=== PATIENT | male | born 1995 | race Caucasian/White ===

== ENCOUNTER 2017-10-18 19:53 | Emergency (ER) | payer OTHER ==
[~2017-10-18] VITALS: Ht 175.3 cm; Wt 78.0 kg
[2017-10-18 20:23] VITALS: BP 150/67; PULSE 98; RESP 16; TEMP 98.5; O2SAT 96
--- NOTE | 2017-10-18 21:31 | RADRPT ---
EXAM DATE/TIME: 10/18/2017 21:22 [place] COMPARISON: No previous studies available for comparison. INDICATIONS : Cough. MEDICAL HISTORY : None. SURGICAL HISTORY : None. ENCOUNTER: Initial ACUITY: 2 weeks PAIN SCORE: 0/10 LOCATION: Bilateral chest FINDINGS: Portable AP view of the chest demonstrates a normal-sized cardiac silhouette. No effusion, consolidat ion, or pneumothorax is visualized. The bones and soft tissues demonstrate no acute abnormality. CONCLUSION: No acute cardiopulmonary abnormality is identified. Frantz Leiva MD on October 18, 2017 at 21:28 Board Certified Radiologist. This report was verified electronically.
[2017-10-18] MEDS ORDERED: IPRA0.06 EACH NARE (22:04)
[2017-10-18] MEDS ORDERED: IBUP1TAB7 PO (22:04)
[2017-10-18] MEDS ORDERED: AMOX875T PO (22:04)
[2017-10-18] MEDS ORDERED: BENZ100 PO (22:05)
--- NOTE | 2017-10-18 22:05 | PD ---
HPI Chief Complaint: Cold / Flu Symptoms Time Seen by Provider: 21:07 Travel History International Travel<30 days: No Contact w/Intl Traveler<30days: No Traveled to known affect area: No History of Present Illness HPI Patient is a 22-year-old male presenting to emergency department for evaluation of cold and flulike symptoms. Patient states his symptoms started 6 days ago, he reports subjective fever and chills. He states that he has been taking Mucinex and ibuprofen which help alleviate his symptoms. 3 days ago his father who is a physician called in a prescription for azithromycin. He has 2 doses of this left. He denies any abdominal pain, nausea, vomiting, chest pain, shortness of breath. He does report nasal congestion, postnasal drip, nonproductive cough, watery eyes. Symptom onset was gradual, symptoms are moderate in nature. Patient states he wakes up in the middle of the night coughing. He denies any significant past medical history. He has no complaints of pain at this time. [facility] Past Medical History Medical History: Denies Significant Hx Social History Alcohol Use: No Tobacco Use: No Substance Use: No Allergies-Medications (Allergen,Severity, Reaction): Coded Allergies: No Known Allergies (Unverified , 10/18/17) Review of Systems Except as stated in HPI: all other systems reviewed are Neg General / Constitutional: Positive: Fever (Subjective, has not taken his temperature), Chills Eyes: Positive: Redness HENT: Positive: Rhinitis, Congestion Respiratory: Positive: Cough, No: Shortness of Breath, Wheezing Gastrointestinal: No: Nausea, Abdominal Pain Genitourinary: No: Dysuria Musculoskeletal: No: Myalgias Neurologic: No: Weakness, Dizziness Physical Exam Narrative GENERAL: Well-developed, well-nourished, alert male. Presenting in no acute distress. SKIN: Warm and dry. HEAD: Atraumatic. Normocephalic. EYES: Pupils equal and round. No scleral icterus. Mild injection bilaterally, no drainage. Extraocular movements are intact. ENT: No nasal bleeding or discharge. Mucous membranes pink and moist. 1+ tonsillar hypertrophy with scant exudate noted. Uvula is midline, airway is patent. Posterior pharynx with cobblestone appearance. NECK: Trachea midline. No JVD. CARDIOVASCULAR: Regular rate and rhythm. RESPIRATORY: No accessory muscle use. Clear to auscultation. Breath sounds equal bilaterally. No wheezes, rhonchi, rales noted. GASTROINTESTINAL: Abdomen soft, non-tender, nondistended. Hepatic and splenic margins not palpable. MUSCULOSKELETAL: Extremities without clubbing, cyanosis, or edema. No obvious deformities. NEUROLOGICAL: Awake and alert. No obvious cranial nerve deficits. Motor grossly within normal limits. Five out of 5 muscle strength in the arms and legs. Normal speech. PSYCHIATRIC: Appropriate mood and affect; insight and judgment normal. Data Data Last Documented VS Vital Signs Date Time Temp Pulse Resp B/P (MAP) Pulse Ox O2 Delivery O2 Flow Rate FiO2 10/18/17 20:23 98.5 98 16 150/67 (94) 96 Room Air Orders Orders Pediatric Rapid Resp Ag Panel (10/18/17 20:42) Group A Rapid Strep Screen (10/18/17 21:17) Chest, Single Ap (10/18/17 ) Strep Culture (Group A) (10/18/17 21:20) MDM Medical Decision Making Medical Screen Exam Complete: Yes Emergency Medical Condition: Yes Interpretation(s) Last Impressions Chest X-Ray 10/18/17 0000 Signed Impressions: Service Date/Time: Wednesday, October 18, 2017 21:22 - CONCLUSION: No acute cardiopulmonary abnormality is identified. Frantz Leiva MD Vital Signs Date Time Temp Pulse Resp B/P (MAP) Pulse Ox O2 Delivery O2 Flow Rate FiO2 10/18/17 20:23 98.5 98 16 150/67 (94) 96 Room Air Differential Diagnosis Bronchitis versus pneumonia versus URI versus influenza versus strep versus other Narrative Course Patient is a well-appearing 22-year-old male presenting with 6 days of cold and flulike symptoms. Presentation appears consistent with a viral illness. Patient has been on azithromycin for 3 days. He does have enlarged, erythematous tonsils with exudate. Pediatric respiratory panel was ordered in triage, patient is negative for influenza and RSV. Rapid strep is negative, however he does have enlarged, erythematous tonsils with exudate. Chest x-ray is negative. We will switch antibiotics to amoxicillin due to presentation of tonsils. Patient is encouraged to continue using Mucinex DM and ibuprofen as directed. Patient will also be given a prescription for ipratropium nasal spray and Tessalon Perles. He is encouraged to follow-up with his primary doctor or return to emergency department for any new worsening symptoms. He verbalized understanding of instructions. Patient stable for discharge. Diagnosis Primary Impression: Pharyngitis Qualified Codes: J02.9 - Acute pharyngitis, unspecified Additional Impression: Viral syndrome Referrals: Primary Care Physician 3 days Patient Instructions: General Instructions, Pharyngitis (ED), Viral Syndrome ( ED) Additional Instructions: Continue using Mucinex DM as needed and as directed Continue with ibuprofen as needed and as directed for fever pain Increase oral fluid intake Complete full course of antibiotics as prescribed Return to emergency department for any new or worsening symptoms Follow-up with your primary doctor Stop Azithromycin, start amoxicillin. Med/Other Pt SpecificInfo: Prescription(s) given Scripts Benzonatate (Tessalon Perles) 100 Mg Cap 200 MG PO TID Y for COUGH, #12 CAP 0 Refills Prov: Jane Swanson 10/18/17 Ibuprofen (Ibuprofen) 800 Mg Tab 800 MG PO Q6HR Y for PAIN, #40 TAB 0 Refills Prov: Jane Swanson 10/18/17 Ipratropium Nasal (Ipratropium Nasal) 0.06% [place] 1 SPRAY EACH NARE QID, #1 BOTTLE 0 Refills Prov: Jane Swanson 10/18/17 Amoxicillin (Amoxicillin) 875 Mg Tab 875 MG PO BID for Infection, #20 TAB 0 Refills Prov: Jane Swanson 10/18/17 Disposition: 01 DISCHARGE HOME Condition: Stable Jane Swanson Oct 18, 2017 22:05
== END 2017-10-18 22:30 | disposition home or self-care (01) ==
LOC: NEPD 19:53
DX: J02.9 Acute pharyngitis, unspecified (principal); B34.9 Viral infection, unspecified; R05 Cough
CPT/HCPCS: 71045; 87081; 87804; 87807; 87880; 99283